=== PATIENT | male | born 1940 | race Two or more races ===

== ENCOUNTER 2019-01-06 09:42 | Outpatient (CLI) | payer OTHER | END 2019-01-06 09:48 | disposition home or self-care (01) | LOC: RAD 501 09:42 | DX: J30.1 Allergic rhinitis due to pollen (principal); J45.31 Mild persistent asthma with (acute) exacerbation ==

== ENCOUNTER 2020-02-05 12:25 | Outpatient (CLI) | payer OTHER | END 2020-02-05 15:16 | disposition home or self-care (01) | LOC: TOM 12:25 | DX: D64.89 Other specified anemias (principal); R19.5 Other fecal abnormalities; K56.51 Intestinal adhesions [bands], with partial obstruction; Z12.11 Encounter for screening for malignant neoplasm of colon ==